=== PATIENT | female | born 1985 | race Caucasian/White ===

== ENCOUNTER 2020-06-04 12:09 | Outpatient (REF) | payer MEDICAID, SELFPAY | END 2020-06-04 12:10 | disposition home or self-care (01) | LOC: HO.LAB 12:09 | PROVIDERS: PCP Emergency Medicine; Visit Provider Internal Medicine | DX: Z20.828 Contact with and (suspected) exposure to other viral communicable diseases (principal) | CPT/HCPCS: C9803; U0003 ==

== ENCOUNTER 2020-07-21 12:36 | Outpatient (REF) | payer MEDICAID, SELFPAY | END 2020-07-21 12:37 | disposition home or self-care (01) | LOC: HO.LAB 12:36 | PROVIDERS: Visit Provider Internal Medicine | DX: Z20.828 Contact with and (suspected) exposure to other viral communicable diseases (principal) | CPT/HCPCS: C9803; U0003 ==

== ENCOUNTER 2020-10-16 13:17 | Emergency (ER) | payer MEDICAID, SELFPAY ==
[2020-10-16 14:07] VITALS: BP 142/82; PULSE 91; RESP 16; TEMP 37.2; BMI 33.4
--- NOTE | 2020-10-16 14:37 | ED.URI ---
HPI - URI/Sore Throat General Chief Complaint: General Medical Stated Complaint: covid symptoms Time Seen by Provider: 10/16/20 14:02 Source: patient Mode of arrival: ambulatory Limitations: no limitations History of Present Illness HPI Narrative: 35-year-old female with a past medical history of asthma and migraine headaches presenting to the ED with complaints of fevers, chills, body aches, nasal congestion, runny nose, dry cough with shortness of breath and chest tightness otherwise does not have any shortness of breath for check tightness only with the cough for the past 3 days worse today. Reports that she called her primary care provider and they prescribed her albuterol inhaler and neb solutions although no other prescriptions. Patient requesting COVID swab. Denies any other symptoms complaints or concerns at this time. MD elicited complaint: cough, rhinorrhea and nasal congestion Onset (ago): day(s) (Three days) Consistency: constant Severity: mild Description of mucous: watery and yellow Able to tolerate fluids by mouth: Yes Exacerbating factors: nothing Relieving factors: nothing Associated symptoms: fever, chills, myalgias, rhinorrhea, nasal congestion, cough and shortness of breath Treatments prior to arrival: none Related Data Previous Rx's Medication Instructions Recorded acetaminophen [Tylenol Extra 1,000 mg PO QID PRN #14 tab 10/16/20 Strength] azithromycin See Rx Instructions .ROUTE 10/16/20 .COMPLEX #6 tab cyclobenzaprine 10 mg PO Q8H #10 tab 10/16/20 ibuprofen 800 mg PO Q8H PRN #14 tab 10/16/20 prednisone 40 mg PO DAILY 5 Days #10 tab 10/16/20 Allergies Allergy/AdvReac Type Severity Reaction Status Date / Time SEASONAL ALLERGIES Allergy Mild HEADACHES Uncoded 04/17/20 15:42 cats Allergy Unknown Uncoded 02/07/20 00:00 seasonal Allergy Unknown Uncoded 02/07/20 00:00 some seafood Allergy Unknown Uncoded 02/07/20 00:00 Review of Systems Review of Systems: Constitutional : +Fever, +Chills, + fatigue, + Malaise ENT/Mouth : No sore throat, + runny nose/nasal congestion Eyes: No Discharge Cardiovascular : No Chest Pain, + SOB Respiratory : + Cough, No Sputum, + Wheezing, No Smoke Exposure, No Dyspnea Gastrointestinal : No Nausea, No Vomiting, No Diarrhea Genitourinary : No irregular bleeding, No Dysuria, No Urinary Frequency, No Hematuria, No Urinary Incontinence, No Urgency, No Flank Pain, Musculoskeletal : + Myalgia Skin : No rash Neuro : No Headache Yes all other systems are reviewed and are negative [facility] Past Medical History Attestation statement: The following information was validated with the patient. Medical History Asthma Hives Migraines Social History Social History Advance Directives: No Advance Directives Information Provided: No Physical Exam Vital Signs: Vital Signs: Last Vital Signs Temp 99.0 F 10/16/20 14:07 Pulse 91 10/16/20 14:07 Resp 16 10/16/20 14:07 BP 142/82 H 10/16/20 14:07 Body Mass Index 33.4 vital signs have been reviewed as normal and appeared to be correct. Blood pressure normal. Heart rate normal. Respiration rate normal. Temperature normal. Oxygen saturation normal. Appearance: Alert. Oriented X3. No acute distress. Head: Normal external exam. Normocephalic. Atraumatic. Eyes: PERRLA. EOMI. Conjunctiva and sclera normal. Eyelids normal. ENT: EAC normal. TM's Normal. Pharynx normal. Uvula midline. Moist mucous membranes. No trismus noted. No drooling noted. No muffled voice noted. Neck: Normal inspection. Neck supple. FROM. No adenopathy. Thyroid Normal. No meningeal signs. No neck mass noted. CVS: Normal heart rate and rhythm. Heart sound normal. No murmurs noted. Pulses normal throughout. Respiratory: No respiratory distress. Painless inspiration. Breath sounds normal. No wheezes/rales/rhonchi noted. Chest nontender. No accessory muscle usage noted or decreased air movement noted. Back: Full range of motion noted. Skin: Skin warm and dry. Normal skin color. Normal skin turgor. No rashes/lesions/lacerations noted. Extremities: No lower extremity edema. Extremities exhibit normal range of motion. Extremities nontender. Neuro: Oriented X 3. No motor deficit. No sensory deficit. Reflexes normal. Course Course Course Narrative: 35-year-old female presenting to the ED with URI symptoms for the past 3 days worse today. On exam patient is alert oriented x3. Not in any acute distress. Vital signs are stable within normal limits. Lungs clear to auscultation. CV RRR. Abdomen is soft and nontender. No lower extremity edema. We will obtain a COVID/RSV/flu swab and DC home with antibiotics and symptomatic treatment as patient declined further workup reported that she is only here for COVID swab and to self isolate and to return if any new or worsening symptoms to follow up with primary care provider. Patient understands agrees with this plan. MDM - URI/Sore Throat Differential Diagnosis Differential diagnosis: Likely upper respiratory infection, sinusitis, viral infection, bronchitis and influenza Medical Records Attestation: I reviewed the patient's medical records. Lab Data Attestation: I reviewed the patient's lab results. Discharge Plan Discharge Clinical Impression: Viral infection Patient Disposition: Home, Self-Care Instructions: Viral Syndrome (ED), COVID-19 (Coronavirus Disease 2019) (ED) Additional Instructions: Based on your symptoms and history we have sent a COVID-19. Although your RESULT IS PENDING at this time. RESULTS should return within 72 hours. At this time you will be contacted with either NEGATIVE OR POSITIVE results. -Please wait until we contact you for your results. At this time you will be okay for discharge. Please plan for self quarantine for up to 14 days. Do not expose yourself to others. You may not go to work. If testing does come back negative you may return to activities as long as you are no longer having any symptoms for at least 3 days. Please continue to follow cold instructions and wash your hands frequently. You may take Tylenol as directed on the bottle for pain or fever. Patient seen in the emergency department on 10/16/2020 and should be excused from work until negative test results AND until 72 hours without any symptoms AND at least 10 days have passed since symptoms first appeared or since last exposure to COVID-19 positive patient CDC Guidelines for home isolation: - Stay away from others - WEAR A MASK if you are sick AND STAY HOME - Cover your mouth and nose with a tissue when you cough or sneeze. Dispose of tissues in a lined trash can and wash your hands immediately with soap and water for at least 20 seconds. If soap and water are not available, clean hands with alcohol-based hand bread icer that contains at least 60% alcohol. - Clean your hands often with soap and water for at least 20 seconds - Avoid touching your eyes, nose and mouth with unwashed hands - Do not share dishes, drinking glasses, cups, eating utensils, towels, or bedding with other people in your home. After using these items, wash them thoroughly with soap and water or put in the injection moulding machine operator. - Clean high-touch surfaces in your isolation area ( sick room and bathroom) every day; let a caregiver clean and disinfect high-touch surfaces in other areas of the home. Clean the area or item with soap and water or another detergent if it is dirty. Then, use a household disinfectant. - Limit contact with pets and animals: If you must care for a pet, wash your hands before and after interacting with them). Prescriptions: New cyclobenzaprine 10 mg tablet 10 mg PO Q8H Qty: 10 RF: 0 azithromycin 250 mg tablet See Rx Instructions .ROUTE .COMPLEX Qty: 6 RF: 0 ibuprofen 800 mg tablet 800 mg PO Q8H PRN (Reason: pain) Qty: 14 RF: 0 prednisone 20 mg tablet 40 mg PO DAILY 5 Days Qty: 10 RF: 0 acetaminophen [Tylenol Extra Strength] 500 mg tablet 1,000 mg PO QID PRN (Reason: fever or pain) Qty: 14 RF: 0 Referrals: [facility] [Primary Care Provider] - 2 days Stand Alone Forms: Work/School Release Print Language: Uzbek
[2020-10-16 15:17] LABS: Influenza A PCR NEGATIVE (Negative); Influenza B PCR NEGATIVE (Negative); Resp Syncy Virus RNA Qual PCR NEGATIVE (Negative); SARS COV2 PCR INHOUSE POSITIVE (Negative)
== END 2020-10-16 15:13 | disposition home or self-care (01) ==
PROVIDERS: Physician Assistant Medical; Emergency Provider Emergency Medicine Emergency Medical Services
DX: U07.1 COVID-19 (principal); J45.909 Unspecified asthma, uncomplicated; F17.210 Nicotine dependence, cigarettes, uncomplicated
CPT/HCPCS: 0241U; 36415; 99283

== ENCOUNTER 2020-10-20 13:56 | Emergency (ER) | payer MEDICAID, SELFPAY ==
--- NOTE | ~2020-10-20 | XR_ITS ---
EXAMINATION: XR CHEST CLINICAL INFORMATION: Chest pain COMPARISON: Chest radiographs 07/24/2019, 09/23/2018 TECHNIQUE: Portable upright AP view of the chest was obtained. FINDINGS: The lungs are clear. There is no airspace consolidation, pleural reaction, pneumothorax, or pneumomediastinum. The costophrenic sulci are well-defined. There is no effusion. The heart is normal in size. The hilar and mediastinal contours and visualized bony structures are unremarkable. XR/XR chest 1V IMPRESSION: Normal study.
[2020-10-20 14:28] VITALS: BP 128/78; PULSE 105; RESP 20; TEMP 37.3; O2SAT 98; BMI 34.4
--- NOTE | 2020-10-20 14:31 | ECG_ITS ---
Test Reason : CHEST TIGHTNESS Blood Pressure : / mmHG Vent. Rate : 089 BPM Atrial Rate : 089 BPM P-R Int : 142 ms QRS Dur : 090 ms QT Int : 342 ms P-R-T Axes : 038 080 039 degrees QTc Int : 416 ms Normal sinus rhythm Normal ECG When compared with ECG of 21-JUN-2017 10:12, No significant change was found Referred By: Taco Fuentes Electronically Signed By:DARSHAN BELLO
--- NOTE | 2020-10-20 14:35 | ED_ITS ---
HPI - Chest Pain General Chief Complaint: Upper Respiratory Symptoms Stated Complaint: +covid,chest pain Time Seen by Provider: 10/20/20 14:30 Source: patient Mode of arrival: ambulatory Limitations: no limitations History of Present Illness HPI narrative: 35-year-old female recently diagnosed with COVID pneumonia, patient presented today with 3 days of chest pain, describes pain as dull aching pain to the whole entire front chest, patient thinks chest pain is because of productive cough of greenish sputum. Patient was seen in the emergency department 4 days ago and was sent home with this zithromax/prednisone. Related Data Previous Rx's Medication Instructions Recorded acetaminophen [Tylenol Extra 1,000 mg PO QID PRN #14 tab 10/16/20 Strength] azithromycin See Rx Instructions .ROUTE 10/16/20 .COMPLEX #6 tab cyclobenzaprine 10 mg PO Q8H #10 tab 10/16/20 ibuprofen 800 mg PO Q8H PRN #14 tab 10/16/20 prednisone 40 mg PO DAILY 5 Days #10 tab 10/16/20 Allergies Allergy/AdvReac Type Severity Reaction Status Date / Time SEASONAL ALLERGIES Allergy Mild HEADACHES Uncoded 04/17/20 15:42 cats Allergy Unknown Uncoded 02/07/20 00:00 seasonal Allergy Unknown Uncoded 02/07/20 00:00 some seafood Allergy Unknown Uncoded 02/07/20 00:00 Review of Systems Review of Systems: All other systems are reviewed and are negative Constitutional: Reports as per HPI and Reports no additional constitutional complaints Eyes: Reports as per HPI and Reports no additional eye complaints Reports system reviewed and no additional complaints, except as documented Cardiovascular: Reports as per HPI and Reports no additional cardiovascular complaints Respiratory: Reports as per HPI and Reports no additional respiratory complaints Gastrointestinal: Reports as per HPI and Reports no additional gastrointestinal complaints Genitourinary: Reports no additional female genitourinary complaints Musculoskeletal: Reports no additional musculoskeletal complaints Skin/Breast: Reports system reviewed and no additional complaints, except as docu Psychiatric: Reports no additional psychiatric complaints Endocrine: Reports no additional endocrine complaints Hematologic/Lymphatic: Reports no additional hematologic/lymphatic complaints Allergic/Immunologic: Reports no additional allergic/immunologic complaints Reports system reviewed and no additional complaints, except as documented and Reports Abnormal speech present [facility] Past Medical History Medical History Asthma EP (ectopic ) Hives Migraines Surgical History H/O tubal ligation Social History Social History Smoking Status: Light tobacco smoker Use of substances other than those prescribed or required for medical reasons: No Advance Directives: No Advance Directives Information Provided: Yes Physical Exam Vital Signs: Vital Signs: Last Vital Signs Temp 99.1 F 10/20/20 14:28 Pulse 105 H 10/20/20 14:28 Resp 20 10/20/20 14:28 BP 128/78 10/20/20 14:28 Pulse Ox 98 10/20/20 14:28 Body Mass Index 34.4 Vital signs have been reviewed as appeared to be correct. Blood pressure normal. Heart rate elevated. Respiration rate normal. Temperature normal. Oxygen saturation normal. Appearance: Alert. Oriented X3. No acute distress. Head: Normal external exam. Normocephalic. Atraumatic. No [place] signs noted. No raccoon eyes noted Eyes: PERRLA. EOMI. Conjunctiva and sclera normal. Eyelids normal. ENT: TM's Normal. Pharynx normal. Uvula midline. Moist mucous membranes. No trismus noted. No drooling noted. No muffled voice noted. Neck: Normal inspection. Neck supple. FROM. No adenopathy. Thyroid Normal. No meningeal signs. No neck mass noted. CVS: Normal heart rate and rhythm. Heart sound normal. No murmurs noted. Pulses normal throughout. Respiratory: No respiratory distress. Painless inspiration. Breath sounds normal. Diffuse expiratory wheezing bilaterally, no rhonchi noted. Chest nontender. No accessory muscle usage noted or decreased air movement noted. Abdomen: Soft and nontender. Bowel sounds normal in all 4 quadrants. No distention noted. No organomegaly noted. No visible injury noted. Back: No CVA tenderness. Full range of motion noted. Skin: Skin warm and dry. Normal skin color. Normal skin turgor. No rashes/lesions/lacerations noted. Extremities: No lower extremity edema. Extremities exhibit normal range of motion. Extremities nontender. Neuro: Oriented X 3. No motor deficit. No sensory deficit. Reflexes normal. Course Course Course Narrative: Assessment and plan. This is a 35-year-old female with COVID pneumonia and history of asthma, patient just finished course of prednisone will not repeat prednisone. Patient felt better after having continuous bronchodilator via neb still complaining of chest tightness, will discharged to use bronchodilator at home and use NSAIDs p.r.n. for discomfort or pain. MDM - Chest Pain Imaging Data Chest x-ray: Radiologist's impression: Normal study. ECG Data ECG #1: Interpretation: Normal sinus rhythm at 89 beats per minute, normal intervals, no ST-T changes. Discharge Plan Discharge Clinical Impression: Pneumonia due to COVID-19 virus Asthma Qualifiers: Asthma severity: moderate Asthma persistence: unspecified Asthma complication type: with acute exacerbation Qualified Code(s): J45.901 - Unspecified asthma with (acute) exacerbation Patient Disposition: Home, Self-Care Instructions: Asthma (ED) Prescriptions: No Action cyclobenzaprine 10 mg tablet 10 mg PO Q8H Qty: 10 RF: 0 azithromycin 250 mg tablet See Rx Instructions .ROUTE .COMPLEX Qty: 6 RF: 0 ibuprofen 800 mg tablet 800 mg PO Q8H PRN (Reason: pain) Qty: 14 RF: 0 prednisone 20 mg tablet 40 mg PO DAILY 5 Days Qty: 10 RF: 0 acetaminophen [Tylenol Extra Strength] 500 mg tablet 1,000 mg PO QID PRN (Reason: fever or pain) Qty: 14 RF: 0 Referrals: [facility] [Primary Care Provider] - 2 days
[2020-10-20] MEDS: Albuterol Sulfate (0.083%) 2.5 MG/3 ML VIAL.NEB 5 MG INHALE (15:47)
[2020-10-20] MEDS: Albuterol/Iprat 2.5/0.5MG 3 ML AMPUL.NEB INHALE (15:47)
== END 2020-10-20 16:31 | disposition home or self-care (01) ==
PROVIDERS: Emergency Provider Emergency Medicine
DX: U07.1 COVID-19 (principal); J12.82 Pneumonia due to coronavirus disease 2019; J45.901 Unspecified asthma with (acute) exacerbation; Z79.899 Other long term (current) drug therapy; F17.200 Nicotine dependence, unspecified, uncomplicated; Z71.6 Tobacco abuse counseling
CPT/HCPCS: 71045; 93005; 99284

== ENCOUNTER 2020-10-29 10:45 | Outpatient (REF) | payer MEDICAID, SELFPAY ==
[2020-10-29 13:17] LABS: SARS COV2 PCR INHOUSE POSITIVE (Negative)
== END 2020-10-29 10:46 | disposition home or self-care (01) ==
LOC: HO.LAB 10:45
PROVIDERS: Visit Provider Internal Medicine
DX: Z20.822 Contact with and (suspected) exposure to COVID-19 (principal)
CPT/HCPCS: C9803; U0003

== ENCOUNTER 2021-08-07 09:46 | Outpatient (REF) | payer MEDICAID, SELFPAY ==
--- NOTE | ~2021-08-07 | MM_ITS ---
EXAMINATION: MM DIAGNOSTIC DIGITAL BREAST TOMOSYNTHESIS, BILATERAL US BREAST TARGETED, LEFT CLINICAL INFORMATION: Left breast lump lower outer quadrant. The lifetime risk of breast cancer based on the Tyrer-Cuzick Model is 9.7%. COMPARISON: Mammography: 01/03/2019 and studies dating back to 12/28/2018 TECHNIQUE: Digital breast tomosynthesis is performed in both the craniocaudal and mediolateral oblique views along with computer-aided detection (CAD). Synthesized 2-D images are generated from the tomosynthesis. Targeted left breast ultrasound. FINDINGS: The breasts are heterogeneously dense, which may obscure small masses (ACR BI-RADS breast composition Category c). There are no significant masses, abnormal calcifications, or other abnormalities. Targeted ultrasound evaluation of the left breast did not demonstrate any abnormal cystic or solid mass. No edematous change within the tissue is seen. No region of abnormal distal sound shadowing seen. Results are discussed with the patient at time of visit. MM/MM tomosynthesis diagnostic BI IMPRESSION: No specific mammographic or ultrasound findings to suggest malignancy. ASSESSMENT: BI-RADS 1: Negative. RECOMMENDATION: Screening mammography by age 40. Clinical followup for palpable abnormality. This patient's information was entered into a reminder system with a target due date for their next mammogram.
--- NOTE | ~2021-08-07 | US_ITS ---
EXAMINATION: US DIAGNOSTIC ULTRASOUND BREAST, LEFT CLINICAL INFORMATION: Left breast lump. COMPARISON: Mammography of same day and ultrasound of December 28, 2018. TECHNIQUE: Ultrasound of the breast is performed with real-time burleson scale imaging and color Doppler. FINDINGS: There is no focal suspicious finding. There is no solid mass, architectural abnormality, duct ectasia, or edema in the soft tissue planes. Results are discussed with the patient at time of visit. US/US breast LT limited IMPRESSION: No specific suspicious left breast ultrasound findings in region of palpable abnormality. ASSESSMENT: BI-RADS 1: Negative RECOMMENDATION: Clinical follow-up for palpable abnormality. This patient's information was entered into a reminder system with a target due date for their next mammogram.
== END 2021-08-07 09:47 | disposition home or self-care (01) ==
LOC: HO.MAMMO 09:46
PROVIDERS: PCP Nurse Practitioner; Visit Provider Nurse Practitioner
DX: N63.24 Unspecified lump in the left breast, lower inner quadrant (principal)
CPT/HCPCS: 76642; 77062; 77066

== ENCOUNTER 2021-10-25 17:57 | Emergency (ER) | payer MEDICAID, SELFPAY ==
--- NOTE | ~2021-10-25 | XR_ITS ---
EXAMINATION: XR CHEST CLINICAL INFORMATION: Cough. COMPARISON: Chest done on 10/20/2020. TECHNIQUE: Frontal view of the chest was obtained. FINDINGS: No significant abnormality is noted involving the heart, lungs, mediastinum, bony thorax or soft tissues. XR/XR chest 1V IMPRESSION: Unremarkable examination.
[2021-10-25 18:01] VITALS: BP 100/73; PULSE 82; RESP 17; TEMP 36.5; O2SAT 100; BMI 35.0
--- NOTE | 2021-10-25 19:59 | ED.ASTHMA ---
HPI - Asthma General Chief Complaint: Asthma Stated Complaint: congested/cheat tightness Time Seen by Provider: 10/25/21 19:59 Source: patient Mode of arrival: ambulatory Limitations: no limitations History of Present Illness HPI Narrative: Patient history of asthma vaccinated against COVID has noticed the booster dose had COVID 2 times last was in 07/21 comes here for cold symptoms for last 3 days with increased shortness of breath and cough with mucopurulent phlegm with chest tightness low-grade fever no chest pain Related Data Previous Rx's Medication Instructions Recorded acetaminophen 500 mg tablet 1,000 mg PO QID PRN #14 tab 10/16/20 (Tylenol Extra Strength) azithromycin 250 mg tablet See Rx Instructions .ROUTE 10/16/20 .COMPLEX #6 tab cyclobenzaprine 10 mg tablet 10 mg PO Q8H #10 tab 10/16/20 ibuprofen 800 mg tablet 800 mg PO Q8H PRN #14 tab 10/16/20 prednisone 20 mg tablet 40 mg PO DAILY 5 Days #10 tab 10/16/20 albuterol sulfate 2.5 mg (3 mL) INHALATION Q4-6H PRN 10/25/21 #90 ml azithromycin 250 mg tablet 250 mg PO DAILY 4 Days #4 tab 10/25/21 (Zithromax) prednisone 20 mg tablet 40 mg PO DAILY #10 tab 10/25/21 Allergies Allergy/AdvReac Type Severity Reaction Status Date / Time SEASONAL ALLERGIES Allergy Mild HEADACHES Uncoded 04/17/20 15:42 cats Allergy Unknown Uncoded 02/07/20 00:00 seasonal Allergy Unknown Uncoded 02/07/20 00:00 some seafood Allergy Unknown Uncoded 02/07/20 00:00 Review of Systems Review of Systems: Yes all other systems are reviewed and are negative PMFSH Past Medical History Medical History Asthma EP (ectopic ) Hives Migraines Surgical History H/O tubal ligation Social History Social History Alcohol intake: current Alcohol intake frequency: a few times a month Alcohol type: hard liquor Patient Tobacco Use Status: Current everyday Tobacco user Smoked in Last 30 Days: No Use of substances other than those prescribed or required for medical reasons: No Advance Directives: No Advance Directives Information Provided: Yes Physical Exam Vital Signs: Vital Signs: Last Vital Signs Temp 97.8 F 10/25/21 21:48 Pulse 87 10/25/21 21:48 Resp 18 10/25/21 21:48 BP 136/79 10/25/21 21:48 Pulse Ox 99 10/25/21 21:48 BMI result Body Mass Index 35.0 Appearance: Alert. Oriented X3. Mild respiratory distress ENT: Pharynx normal. Oral Mucosa moist no exudate tonsils normal Neck: Normal inspection. Neck supple. CVS: Normal heart rate and rhythm. Pulses normal. Respiratory: Mild distress Equal air entry bilateral, bilateral wheezing Abdomen: Soft and nontender. Bowel sounds are present, no mass palpable, no CVA tenderness Skin: Skin warm and dry. Normal skin color. Normal skin turgor. Extremities: No lower extremity edema. No calf tenderness Neuro: Oriented X 3. MDM - Asthma Lab Data Result diagrams: 10/25/21 20:37 10/25/21 20:58 Labs: Lab Results 10/25/21 10/25/21 10/25/21 Range/Units 20:37 20:37 20:58 WBC 8.9 (4.8-10.8) X10*3/uL RBC 5.04 (4.20-5.50) X10*6/uL Hgb 12.2 (12.0-16.0) g/dl Hct 38.4 (37.0-47.0) % MCV 76.2 L (80.0-98.0) fL MCH 24.2 L (27.0-33.0) pg MCHC 31.8 (31.0-35.0) g/dl RDW 15.6 (11.0-16.0) % Plt Count 248 (160-400) X10*3/uL MPV 10.6 (9.4-12.3) fL Immature Gran % (Auto) 0.2 (0.0-0.4) % Neut % (Auto) 45.3 (45-73) % Lymph % (Auto) 38.7 (20-40) % [place] % (Auto) 7.8 (2-11) % Eos % (Auto) 7.4 H (0-4) % Baso % (Auto) 0.6 (0-2) % Lymph # (Auto) 3.4 (1.2-4.9) X10*3/uL [place] # (Auto) 0.7 (0.1-1.2) X10*3/uL Eos # (Auto) 0.7 H (0.0-0.4) X10*3/uL Baso # (Auto) 0.1 (0.0-0.2) X10*3/uL Abs Immat Gran (auto) 0.02 (0.00-0.03) X10*3/uL Absolute Neuts (auto) 4.0 (2.0-8.3) x10*3/uL Absolute Nucleated RBC 0.000 (0.0-0.012) X10*3/uL Nucleated RBC % (auto) 0.0 (0.0-0.2) /100WBC Sodium 139 (135-145) mmol/L Potassium 3.1 L (3.3-5.1) mmol/L Chloride 104 (96-108) mmol/L Carbon Dioxide 24 (22-29) mmol/L Anion Gap 14 (12-20) BUN 13 (9-16) mg/dL Creatinine 0.78 (0.5-1.4) mg/dL Estim Creat Clear Calc 124.4 Estimated GFR > 60 Random Glucose 117 H (60-115) mg/dL Calcium 8.9 (8.4-10.2) mg/dL COVID-19 (FRITZ) Negative (Negative) COVID-19 Clin Com See Note Discharge Plan Discharge Clinical Impression: Asthma with acute exacerbation Patient Disposition: Home, Self-Care Instructions: Asthma (ED) Additional Instructions: Continue to use inhaler and nebulizing treatment every 4-6 hours as needed Prednisone as prescribed Antibiotic as prescribed Follow with PCP Prescriptions: New prednisone 20 mg tablet 40 mg PO DAILY Qty: 10 0RF azithromycin [Zithromax] 250 mg tablet 250 mg PO DAILY 4 Days Qty: 4 0RF Rx Instructions: start on day 2 of therapy albuterol sulfate 2.5 mg /3 mL (0.083 %) solution for nebulization 2.5 mg inhalation Q4-6H PRN (Reason: shortness of breath or wheezing) Qty: 90 0RF No Action cyclobenzaprine 10 mg tablet 10 mg PO Q8H Qty: 10 0RF azithromycin 250 mg tablet See Rx Instructions .ROUTE .COMPLEX Qty: 6 0RF Rx Instructions: take 500 mg today (day 1), then 250 mg for 4 days (days 2-5) ibuprofen 800 mg tablet 800 mg PO Q8H PRN (Reason: pain) Qty: 14 0RF prednisone 20 mg tablet 40 mg PO DAILY 5 Days Qty: 10 0RF acetaminophen [Tylenol Extra Strength] 500 mg tablet 1,000 mg PO QID PRN (Reason: fever or pain) Qty: 14 0RF Interventions: ED Discharge Assessment Last Done: 10/25/21 21:59 Discharge Date/Time: 10/25/21 22:00
[2021-10-25 20:00] VITALS: BP 125/81; PULSE 77; RESP 18; TEMP 36.6; O2SAT 99
--- NOTE | 2021-10-25 20:14 | PC.NURSE ---
pt a&ox3, vss, pt reports cold and now an exacerbation of her asthma. hx of similar episodes w URIs/seasonal changes. pt c/o chest tightness/sharp pain. pt speaking in full sentances, norm resp effort, some wheezing when talking. respiratory in room for breathing treatments, unable to draw labs/place IV at this time.
[2021-10-25] MEDS: Albuterol/Iprat 2.5/0.5MG 3 ML AMPUL.NEB INHALE (20:15)
[2021-10-25] MEDS: Albuterol Sulfate (0.083%) 2.5 MG/3 ML VIAL.NEB 5 MG INHALE (20:15)
[2021-10-25 20:26] VITALS: PULSE 71; RESP 14; O2SAT 97
[2021-10-25] MEDS: Magnesium Sulfate/H2O 2 GM/50 ML PIGGYBACK IV (20:45)
[2021-10-25 20:49] LABS: MANUAL DIFF FLAG NO
--- NOTE | 2021-10-25 20:50 | PC.NURSE ---
pt medicated per order, pt a&ox3, speaking in full sentences, family at bedside.
[2021-10-25 20:53] LABS: Basophils Absolute Auto 0.1 X10*3/uL (0.0-0.2); Basophils Percent Auto 0.6 % (0-2); Eosinophils Absolute Auto 0.7 X10*3/uL (0.0-0.4); Eosinophils Percent Auto 7.4 % (0-4); Hematocrit 38.4 % (37.0-47.0); Hemoglobin 12.2 g/dl (12.0-16.0); Imm Gran Abs Auto 0.02 X10*3/uL (0.00-0.03); Imm Gran Pct Auto 0.2 % (0.0-0.4); Lymphocytes Absolute Auto 3.4 X10*3/uL (1.2-4.9); Lymphocytes Percent Auto 38.7 % (20-40); Mean Corpuscular HGB Conc 31.8 g/dl (31.0-35.0); Mean Corpuscular Hemoglobin 24.2 pg (27.0-33.0); Mean Corpuscular Volume 76.2 fL (80.0-98.0); Mean Platelet Volume 10.6 fL (9.4-12.3); Monocytes Absolute Auto 0.7 X10*3/uL (0.1-1.2); Monocytes Percent Auto 7.8 % (2-11); Neutrophils Percent Auto 45.3 % (45-73); Platelet Count 248 X10*3/uL (160-400); Red Blood Count 5.04 X10*6/uL (4.20-5.50); Red Cell Distribution Width 15.6 % (11.0-16.0); White Blood Count 8.9 X10*3/uL (4.8-10.8)
[2021-10-25 21:07] LABS: COVID-19 Test Negative (Negative); IDNOW Serial# 16C4AD1C
[2021-10-25 21:20] LABS: Anion Gap 14 (12-20); Blood Urea Nitrogen 13 mg/dL (9-16); Calcium 8.9 mg/dL (8.4-10.2); Carbon Dioxide 24 mmol/L (22-29); Chloride 104 mmol/L (96-108); Creatinine Clr Calc Pharmacy 124.4; Estimated Glomerular Filt Rate > 60; Glucose Random 117 mg/dL (60-115); Potassium 3.1 mmol/L (3.3-5.1); Sodium 139 mmol/L (135-145)
[2021-10-25] MEDS: dexAMETHasone sod phosphate 10 MG/ML VIAL IVPUSH (21:44)
[2021-10-25] MEDS: Azithromycin 500 MG TABLET PO (21:44)
[2021-10-25 21:48] VITALS: BP 136/79; PULSE 87; RESP 18; TEMP 36.6; O2SAT 99
--- NOTE | 2021-10-25 21:59 | PC.NURSE ---
pt medicated per order
== END 2021-10-25 22:00 | disposition home or self-care (01) ==
PROVIDERS: Emergency Provider Internal Medicine
DX: J45.901 Unspecified asthma with (acute) exacerbation (principal); R06.02 Shortness of breath; R05.9 Cough, unspecified; F17.200 Nicotine dependence, unspecified, uncomplicated; Z20.822 Contact with and (suspected) exposure to COVID-19; Z71.6 Tobacco abuse counseling
CPT/HCPCS: 71045; 80048; 85025; 87635; 94640; 94644; 96365; 96366; 99284; J1100; J3475

== ENCOUNTER 2023-06-30 13:28 | Outpatient (REF) | payer MEDICAID, SELFPAY | END 2023-06-30 13:29 | disposition home or self-care (01) | LOC: HO.HHCLNP 13:28 | PROVIDERS: Visit Provider Family Medicine | DX: J06.9 Acute upper respiratory infection, unspecified (principal) | CPT/HCPCS: 87070 ==

== ENCOUNTER 2023-07-20 09:43 | Emergency (ER) | payer MEDICAID, SELFPAY ==
--- NOTE | ~2023-07-20 | XR_ITS ---
EXAMINATION: XR CHEST CLINICAL INFORMATION: Shortness of breath COMPARISON: 12/25/2021 TECHNIQUE: 2 views of the chest were obtained. FINDINGS: No significant abnormality is noted involving the heart, lungs, mediastinum, bony thorax or soft tissues. XR/XR chest 2V IMPRESSION: Unremarkable examination.
[2023-07-20 09:57] VITALS: BP 125/89; PULSE 95; RESP 22; TEMP 36.6; O2SAT 95; BMI 33.9
--- NOTE | 2023-07-20 12:51 | ED.GENADULT ---
HPI - General Adult General Chief complaint: Upper Respiratory Symptoms Stated complaint: Asthma Diff Breathing Time Seen by Provider: 07/20/23 12:46 Source: patient Mode of arrival: ambulatory Limitations: no limitations History of Present Illness HPI narrative: Patient is a 38 year old assigned female at with a history of asthma presenting to the emergency department today with a cough and congestion. Patient states that over the last month she has had a cough and congestion. Patient denies any dizziness, lightheadedness, abdominal pain, nausea, vomiting, fever, chills, blurry vision, double vision, loss of vision, chest pain, difficulty breathing, shortness of breath, back pain, night sweats, pain with urination, increased urinary frequency, increased urinary urgency, blood in her urine or stool, syncope or a near syncopal episode, recent trauma or falls, bowel incontinence, bladder incontinence, bowel retention, bladder retention, or any other complaints at this time. Onset (ago): month(s) (1) Severity: mild Relieving factors: none Exacerbating factors: none Associated symptoms: cough Treatments prior to arrival: none Related Data Previous Rx's Medication Instructions Recorded acetaminophen 500 mg tablet 1,000 mg (2 x 500 mg) PO QID PRN 10/16/20 (Tylenol Extra Strength) fever or pain #14 tabs azithromycin 250 mg tablet See Rx Instructions PO .COMPLEX #6 10/16/20 tabs cyclobenzaprine 10 mg tablet 10 mg PO Q8H Muscle spasm #10 tabs 10/16/20 ibuprofen 800 mg tablet 800 mg PO Q8H PRN pain #14 tabs 10/16/20 prednisone 20 mg tablet 40 mg (2 x 20 mg) PO DAILY rash 5 10/16/20 days #10 tabs albuterol sulfate 2.5 mg/3 mL 2.5 mg (3 mL) inhalation Q4-6H PRN 10/25/21 (0.083 %) solution for nebulization shortness of breath or wheezing #90 mL azithromycin 250 mg tablet 250 mg PO DAILY 4 days #4 tabs 10/25/21 (Zithromax) prednisone 20 mg tablet 40 mg (2 x 20 mg) PO DAILY #10 tabs 10/25/21 albuterol sulfate 1.25 mg/3 mL 1.25 mg (3 mL) inhalation QID #90 07/20/23 solution for nebulization mL prednisone 20 mg tablet 20 mg PO DAILY 7 days #7 tabs 07/20/23 Allergies Allergy/AdvReac Type Severity Reaction Status Date / Time SEASONAL ALLERGIES Allergy Mild HEADACHES Uncoded 07/20/23 09:56 cats Allergy Unknown Anaphylaxis Uncoded 07/20/23 09:56 seasonal Allergy Unknown Hives Uncoded 07/20/23 09:56 some seafood Allergy Unknown Anaphylaxis Uncoded 07/20/23 09:56 Review of Systems Constitutional: Constitutional: Reports no additional constitutional complaints, Denies chills, Denies fever(s) and Denies night sweats Eyes: Eyes: Reports no additional eye complaints, Denies blurry vision, Denies change in vision, Denies diplopia, Denies eye discharge, Denies loss of vision and Denies eye pain ENT: Denies dizziness and Reports nasal congestion Cardiovascular: Cardiovascular: Reports no additional cardiovascular complaints, Denies chest pain, Denies lightheadedness, Denies Loss of Consciousness and Denies dyspnea Respiratory: Respiratory: Reports no additional respiratory complaints, Reports cough and Denies dyspnea Gastrointestinal: Gastrointestinal: Reports no additional gastrointestinal complaints, Denies abdominal pain, Denies melena, Denies hematochezia, Denies change in bowel habits and Denies change in stool character Genitourinary: Genitourinary: Denies hematuria, Denies urinary frequency, Denies dysuria, Denies urinary incontinence, Denies urinary hesitancy and Denies urinary urgency Musculoskeletal: Musculoskeletal: Reports no additional musculoskeletal complaints, Denies numbness and Denies tingling Neurologic: Denies dizziness, Denies loss of vision, Denies numbness and Denies tingling Psychiatric: Psychiatric: Reports no additional psychiatric complaints Endocrine: Endocrine: Reports no additional endocrine complaints Hematologic/Lymphatic: Hematologic/Lymphatic: Reports no additional hematologic/lymphatic complaints Allergic/Immunologic: Allergic/Immunologic: Reports no additional allergic/immunologic complaints PMFSH Past Medical History Attestation statement: The following information was validated with the patient. Source: old records reviewed and nursing notes reviewed Medical History EP (ectopic ) Hives Migraines Asthma Surgical History H/O tubal ligation Social History Social History Alcohol intake: current Alcohol intake frequency: a few times a month Alcohol type: hard liquor Patient Tobacco Use Status: Current everyday Tobacco user Advance Directives: No Physical Exam ED Vital Signs: Vital Signs - 24 hr 07/20/23 09:57 07/20/23 13:15 Temperature 98 F Pulse Rate 95 72 Respiratory Rate 22 H 18 Blood Pressure 125/89 Pulse Oximetry 95 Oxygen Delivery Method Room Air BMI result Body Mass Index 33.9 Const General: cooperative, no acute distress, alert and awake Nutritional Appearance: well nourished Orientation/consciousness: patient oriented x3 Limitations: no limitations HENMT Head: Yes normal to inspection and Yes atraumatic Ears: hearing grossly normal bilaterally and external ears normal General nose exam: Normal external nose present, no nasal discharge noted and no epistaxis Face and sinus: Yes normal facial exam, No abrasion and No laceration Mouth: Normal oral and palatal mucosa present, no drooling and no muffled voice Eyes General: appearance normal, both eyes and all related structures Periorbital: periorbital findings normal Eyelids: Yes eyelids normal Conjunctivae: conjunctivae normal Pupils: Equal, round and reactive pupils present EOM: EOMs intact bilaterally Neck Neck: Yes normal visual inspection, Yes full ROM and Yes no lymphadenopathy Chest Chest palpation & inspection: normal inspection of the chest Resp Effort & Inspection: normal respiratory effort and able to speak in complete sentences Auscultation: wheezes scattered wheezes GI Inspection: Yes normal to inspection Neuro General: patient oriented x3 and moves all extremities Cranial nerves: Yes Equal, round and reactive pupils present Cognition (Neuro): normal cognition Motor exam (neuro): 5/5 motor strength present throughout Sensory Exam: Normal double simultaneous stimulation for sensation Coordination: [id number] test normal Extrem General: Yes normal to inspection, Yes full ROM and Yes capillary refill normal Psych Appearance: grossly normal Mental Status: mental status grossly normal Affect: normal affect Attitude: cooperative Thought process: Normal thought process present Thought content: Normal thought content present Insight: Good insight present (Psych) Medications Administered Discontinued Medications Generic Name Dose Route Start Last Admin Trade Name Freq PRN Reason Stop Dose Admin Albuterol Sulfate 2.5 mg/ 0 mg 07/20/23 13:11 07/20/23 13:13 Albuterol/Ipratropium 3 ml INHALE 07/20/23 13:12 1 dose ONCE ONE Administration Methylprednisolone Sodium Succinate 60 mg 07/20/23 12:51 07/20/23 13:05 Methylprednisolone Sod Succ 125 Mg/2 Ml Vial IM 07/20/23 12:52 60 mg ONCE ONE Administration Medical Decision Making Medical Decision Making [facility] Narrative: Patient is a 38 year old assigned female at with a history of asthma presenting to the emergency department today with cough and congestion. Patient's physical exam showed scattered wheezes but was otherwise unremarkable. Patient's chest x-ray showed no acute process. Patient's RSV and influenza tests were negative. Patient's COVID-19 was positive. I explained my physical exam findings as well as all test results to the patient. I answered all questions asked by the patient. Patient received a breathing treatment which she stated helped her symptoms significantly. I stressed the importance of the patient taking her medication as prescribed. I stressed the importance of the patient following up with her primary care provider. I stressed the importance of the patient returning to the emergency department immediately if her symptoms were to worsen or if she were to develop any dizziness, shortness of breath, difficulty breathing, chest pain, blurry vision, loss of vision, nausea, vomiting, abdominal pain, fever, chills, back pain, or any other complaints. Patient verbalized agreement and understanding with this treatment plan and discharge. Differential Diagnosis Differential Diagnoses: The differential diagnosis associated with the presentation includes COVID-19 Influenza RSV Pneumonia Asthma exacerbation Admission/Observation Consideration of admission/observation: Escalation of care including admission/observation considered Patient would have been admitted to the hospital had her work up had any findings where hospital admission was appropriate and her clinical presentation warranted hospital admission. Lab Data [facility] Lab Attestation statement: I reviewed the patient's lab results. My interpretation of these results are in the [facility] Rationale portion of this note. Labs: Lab Results 07/20/23 Range/Units 12:12 Influenza Type A (PCR) NEGATIVE (Negative) Influenza Type B (PCR) NEGATIVE (Negative) RSV RNA Qual (PCR) NEGATIVE (Negative) SARS-CoV-2 RNA (RT-PCR) POSITIVE A (Negative) Independent Interpretation I performed an independent interpretation of an: Plain X-Ray Interpretation: My interpretation is in agreement with the radiologist's impression of this imaging study. EXAMINATION: XR CHEST CLINICAL INFORMATION: Shortness of breath COMPARISON: 12/25/2021 TECHNIQUE: 2 views of the chest were obtained. FINDINGS: No significant abnormality is noted involving the heart, lungs, mediastinum, bony thorax or soft tissues. XR/XR chest 2V IMPRESSION: Unremarkable examination. Dictated By: Dawood Guy MD Signed By: Electronically signed by Dawood Guy MD 07/20/23 9833 Radiology Impression Discussion of test interpretation with radiology: I have reviewed the radiologist's reading. Discharge Plan Discharge Clinical Impression: COVID-19, Asthma Patient Disposition: Home, Self-Care Instructions: Asthma (DC), COVID-19 (Coronavirus Disease 2019) (ED) Additional Instructions: Follow up with your primary care provider. Return to the emergency department immediately if your symptoms worsen or if you develop any dizziness, shortness of breath, difficulty breathing, chest pain, blurry vision, loss of vision, nausea, vomiting, abdominal pain, fever, chills, back pain, or any other complaints. Prescriptions: New prednisone 20 mg tablet 20 mg PO DAILY 7 Days Qty: 7 0RF albuterol sulfate 1.25 mg/3 mL solution for nebulization 1.25 mg inhalation QID Qty: 90 0RF No Action cyclobenzaprine 10 mg tablet 10 mg PO Q8H Qty: 10 0RF azithromycin 250 mg tablet See Rx Instructions .ROUTE .COMPLEX Qty: 6 0RF Rx Instructions: take 500 mg today (day 1), then 250 mg for 4 days (days 2-5) ibuprofen 800 mg tablet 800 mg PO Q8H PRN (Reason: pain) Qty: 14 0RF prednisone 20 mg tablet 40 mg PO DAILY 5 Days Qty: 10 0RF acetaminophen [Tylenol Extra Strength] 500 mg tablet 1,000 mg PO QID PRN (Reason: fever or pain) Qty: 14 0RF prednisone 20 mg tablet 40 mg PO DAILY Qty: 10 0RF azithromycin [Zithromax] 250 mg tablet 250 mg PO DAILY 4 Days Qty: 4 0RF Rx Instructions: start on day 2 of therapy albuterol sulfate 2.5 mg /3 mL (0.083 %) solution for nebulization 2.5 mg inhalation Q4-6H PRN (Reason: shortness of breath or wheezing) Qty: 90 0RF Referrals: [place] [Primary Care Provider] - Stand Alone Forms: Work/School Release Interventions: ED Discharge Assessment Last Done: 07/20/23 13:36 Discharge Date/Time: 07/20/23 14:55 Print Language: Faroese
[2023-07-20 12:56] LABS: Influenza A PCR NEGATIVE (Negative); Influenza B PCR NEGATIVE (Negative); Resp Syncy Virus RNA Qual PCR NEGATIVE (Negative); SARS COV2 PCR INHOUSE POSITIVE (Negative)
[2023-07-20] MEDS: methylPREDNISolone Sod Succ 125 MG/2 ML VIAL 60 MG IM (13:05)
[2023-07-20] MEDS: Albuterol Sulfate 2.5 MG, Albuterol/Iprat 2.5/0.5MG 3 ML 3 ML INHALE (13:13)
[2023-07-20 13:15] VITALS: PULSE 72; RESP 18; O2SAT 96
== END 2023-07-20 14:55 | disposition home or self-care (01) ==
PROVIDERS: Emergency Provider Emergency Medicine Emergency Medical Services
DX: U07.1 COVID-19 (principal); R06.02 Shortness of breath; R05.9 Cough, unspecified
CPT/HCPCS: 0241U; 71046; 94640; 96372; 99283; 99284; J2930

== ENCOUNTER 2024-01-11 15:48 | Outpatient (REF) | payer MEDICAID, SELFPAY ==
--- NOTE | ~2024-01-11 | XR_ITS ---
EXAMINATION: XR CERVICAL SPINE CLINICAL INFORMATION: Chronic neck pain and point tenderness over cervical spine. Patient states pain over a month, denies any accident or injury. COMPARISON: None available. TECHNIQUE: 6 views of the cervical spine. FINDINGS: Mild spondylosis in the lower cervical spine. Slight reversal of the normal cervical lordosis. Cervical disc space heights are preserved. Bilateral neural foramina are grossly patent. XR/XR cervical spine 5V IMPRESSION: Mild spondylosis in the lower cervical spine.
== END 2024-01-11 15:49 | disposition home or self-care (01) ==
LOC: HO.HHCL 15:48
PROVIDERS: Visit Provider Registered Nurse
DX: Z13.89 Encounter for screening for other disorder (principal)
CPT/HCPCS: 72050

== ENCOUNTER 2024-01-13 11:58 | Outpatient (REF) | payer MEDICAID, SELFPAY ==
[2024-01-13 13:16] LABS: MANUAL DIFF FLAG NO
[2024-01-13 13:46] LABS: Basophils Percent Auto 0.8 % (0-2); Eosinophils Absolute Auto 0.4 X10*3/uL (0.0-0.4); Eosinophils Percent Auto 6.8 % (0-4); Hematocrit 40.4 % (37.0-47.0); Hemoglobin 12.8 g/dl (12.0-16.0); Imm Gran Abs Auto 0.02 X10*3/uL (0.00-0.03); Imm Gran Pct Auto 0.4 % (0.0-0.4); Lymphocytes Absolute Auto 1.6 X10*3/uL (1.2-4.9); Lymphocytes Percent Auto 30.7 % (20-40); Mean Corpuscular HGB Conc 31.7 g/dl (31.0-35.0); Mean Corpuscular Hemoglobin 24.5 pg (27.0-33.0); Mean Corpuscular Volume 77.4 fL (80.0-98.0); Mean Platelet Volume 11.2 fL (9.4-12.3); Monocytes Absolute Auto 0.3 X10*3/uL (0.1-1.2); Monocytes Percent Auto 5.6 % (2-11); Neutrophils Percent Auto 55.7 % (45-73); Platelet Count 248 X10*3/uL (160-400); Red Blood Count 5.22 X10*6/uL (4.20-5.50); Red Cell Distribution Width 15.9 % (11.0-16.0); White Blood Count 5.3 X10*3/uL (4.8-10.8)
[2024-01-13 14:42] LABS: Alanine Aminotransferase 11 U/L (0-31); Albumin Level 3.8 g/dL (3.5-5.0); Alkaline Phosphatase 90 U/L (39-117); Anion Gap 13 (12-20); Aspartate Amino Transferase 14 U/L (5-31); Bilirubin Total 1.1 mg/dL (0.0-1.0); Blood Urea Nitrogen 10 mg/dL (9-16); Calcium 8.9 mg/dL (8.4-10.2); Carbon Dioxide 21 mmol/L (22-29); Chloride 108 mmol/L (96-108); Cholesterol 140 mg/dL (<200); Estimated Glomerular Filt Rate > 60; Ferritin 9 ng/mL (10-122); Free T4 (Free Thyroxine) 0.72 ng/dL (0.71-1.85); Glucose Fasting 99 mg/dL (60-99); HDL Cholesterol 61 mg/dL (>40); LDL Cholesterol Calculated 58 mg/dL (<100); Potassium 3.6 mmol/L (3.3-5.1); Sodium 138 mmol/L (135-145); Thyroid Stimulating Hormone 1.94 uIU/mL (0.32-4.0); Total Protein 6.9 g/dL (6.5-8.0); Triglycerides 107 mg/dL (<150)
[2024-01-16 03:24] LABS: Syphilis Screen Nonreactive (Nonreactive)
[2024-01-16 03:50] LABS: HBc Num1 0.09 S/CO (0.00-0.79); HBsAGNum1 0.23 S/CO (0.00-0.99); HIV AB/AG Nonreactive (Nonreactive); HIV Num 1 0.07 S/CO (0.00-0.99); Hepatitis A Antibody IgM 0.14 Index (0-0.79); Hepatitis B Core Antibody Nonreactive (Nonreactive); Hepatitis B Surface Antigen Negative (Negative); ~HepC Num1 0.08 S/CO (0.00-0.79); ~Hepatitis A Antibody IgM Nonreactive (Nonreactive); ~Hepatitis B Surface Antibody REACTIVE (Nonreactive); ~Hepatitis C Antibody Nonreactive (Nonreactive)
== END 2024-01-13 11:59 | disposition home or self-care (01) ==
LOC: HO.HHCL 11:58
PROVIDERS: Visit Provider Registered Nurse
DX: Z00.00 Encounter for general adult medical examination without abnormal findings (principal); Z11.4 Encounter for screening for human immunodeficiency virus [HIV]; N93.9 Abnormal uterine and vaginal bleeding, unspecified; E66.09 Other obesity due to excess calories; Z68.34 Body mass index [BMI] 34.0-34.9, adult
CPT/HCPCS: 36415; 80053; 80061; 82728; 84439; 84443; 85025; 86704; 86706; 86709; 86780; 86803; 87340; 87389

== ENCOUNTER 2024-06-18 16:12 | Outpatient (REF) | payer MEDICAID, SELFPAY ==
[2024-06-19 10:12] LABS: HPV 16,18/45 See PAP report
[2024-06-20 19:19] LABS: C. trachomatis RNA TMA NOT DETECTED (NOT DETECTED); N. gonorrhoeae RNA TMA NOT DETECTED (NOT DETECTED); Trichomonas (NAAT) NOT DETECTED (NOT DETECTED)
== END 2024-06-18 16:13 | disposition home or self-care (01) ==
LOC: HO.LNP 16:12
PROVIDERS: Visit Provider Registered Nurse
DX: Z12.4 Encounter for screening for malignant neoplasm of cervix (principal)
CPT/HCPCS: 87491; 87591; 87624; 87661; 88175

== ENCOUNTER 2024-11-02 12:41 | Outpatient (REF) | payer MEDICAID, SELFPAY ==
--- NOTE | ~2024-11-02 | XR_ITS ---
EXAMINATION: XR KNEE, LEFT CLINICAL INFORMATION: Acute on chronic left knee pain, swelling COMPARISON: None available. TECHNIQUE: Three views of the left knee. FINDINGS: No fracture, dislocation, or suspicious bone lesion. Normal bone mineralization. Normal alignment. Mild patella raven. Joint spaces are preserved. No significant arthropathy. No significant joint effusion. Soft tissues appear normal. XR/XR knee LT 3V IMPRESSION: Normal left knee. Electronically signed by: Tomas Mascorro MD 11/05/2024 02:55 PM EDT
--- OUTSIDE RECORDS SUMMARY | 2024-11-02 14:33 | XMS_ITS | Encounter Summary ---
Author Organization [employer] Address [address] [place] [address] Care Team Providers Care Sensor Technician Name Role Phone [facility] Primary Care Provider [phone] Encounter Details Date Type Department Care Team (Latest Contact Info) Description 11/02/2024 Travel Social History Tobacco Use Types Packs/Day Years Used Date Smoking Tobacco: Every Day Cigarettes Passive Smoke Exposure: Current Smokeless Tobacco: Never Depression Answer Date Recorded Patient Health Questionnaire-9 Score 0 04/16/2024 Patient Health Questionnaire-9 Score 0 04/16/2024 Last PHQ-9: Questionnaire Data Not on file 0 04/16/2024 Housing Stability Answer Date Recorded What is your housing situation today? I do not have housing (Staying with others, in a hotel, in a [place], living outside on the street, on a beach, in a car, or in a park 01/11/[address] you li ve. Do you have problems with any of the following? None of the above 01/11/2024 Food Insecurity Answer Date Recorded Within the past 12 months, y ou worried that your food would run out before you got money to buy more: Often true 01/11/2024 Within the past 12 months,th e food you bought just didn't last and you didn't have enough money to get more: Often true 07/2024 Transportation Answer Date Recorded In the past 12 months, has l ack of transportation kept you from medical appts, meetings, work or from getting things needed for daily living? I am not sure 01/11/2024 Utilities Answer Date Recorded In the past 12 months, has t he electric, gas, oil or water company threatened to shut off services in your home? I am not sure 01/11/2024 Depression Answer Date Recorded Patient Health Questionnaire-2 Score 0 04/16/2024 Comments Unknown Sex and Gender Information Value Date Recorded Sex Assigned at Female 05/31/2022 10:14 AM EDT Legal Sex Female 10:14 AM EDT Gender Identity Female 05/31/2022 10:14 AM EDT Sexual Orientation Bisexual 05/31/2022 10 :14 AM EDT documented as of this encounter Plan of Treatment Upcoming Encounters Date Type Department Care Team (Late st Contact Info) Description 12/26/2024 11:15 AM EDT Telemedicine [facility] [address] [place] [address] Edna Beltre FNP [address] [place] [address] documented as of this encounter Visit Diagnoses Not on filedocumented in this encounter Additional Health Concerns Assessment Noted Time PHQ-9 Depression Total Score: 0 04/16/20 24 10:25 AM EDT documented as of this encounter Care Teams Sensor Technician Relationship Specialty Start Date End Date Edna Beltre FNP [address] [place] [address] PCP - General Family Medicine 03/25/22 documented as of this encounter
--- OUTSIDE RECORDS SUMMARY | 2024-11-02 14:33 | XMS_ITS | Encounter Summary ---
Author Organization [employer] Address [address] [place] [address] Care Team Providers Care Forging Press Setter Up Name Role Phone [facility] Primary Care Provider [phone] Reason for Visit * Reason Comments Med Refill Encounter Details Date Type Department Care Team (Late st Contact Info) Description 03/05/2024 Refill [facility] [address] [place] [address] [facility] [address] [place] [address] Moderate persistent asthma with acute exacerbation Social History Tobacco Use Types Packs/Day Years Used Date Smoking Tobacco: Every Day Cigarettes Passive Smoke Exposure: Current Smokeless Tobacco: Never Depression Answer Date Recorded Patient Health Questionnaire-9 Score 8 01/11/2024 Patient Health Questionnaire-9 Score 8 01/11/2024 Last PHQ-9: Questionnaire Data Not on file 0 01/11/2024 Housing Stability Answer Date Recorded What is your housing situation today? I do not have housing (Staying with others, in a hotel, in a alf, living outside on the street, on a [...] Answer Date Recorded Patient Health Questionnaire-2 Score 2 01/11/2024 Comments Unknown Sex and Gender Information Value Date Recorded Sex Assigned at Female 05/31/2022 10:14 AM EDT Legal Sex Female 10:14 AM EDT Gender Identity Female 05/31/2022 10:14 AM EDT Sexual Orientation Bisexual 05/31/2022 10 :14 AM EDT documented as of this encounter Plan of Treatment Upcoming Encounters Date Type Department Care Team (Late st Contact Info) Description 12/26/2024 11:15 AM EDT Telemedicine [facility] [address] [place] [address] [employer] [facility] [address] [place] [address] documented as of this encounter Visit Diagnoses Diagnosis Moderate persistent asthma with acute exacerbation documented in this encounter Additional Health Concerns Assessment Noted Time PHQ-9 Depression Total Score: 8 01/11/20 24 2:14 PM EDT documented as of this encounter Care Teams Forging Press Setter Up Relationship Specialty Start Date End Date Edna Beltre FNP [address] [place] [address] PCP - General Family Medicine 03/25/22 documented as of this encounter
--- OUTSIDE RECORDS SUMMARY | 2024-11-02 14:34 | XMS_ITS | Clinical Summary ---
Author Organization [employer] Address [address] 7[address] [place] [address] Care Team Providers Care Prop Sawyer Name Role Phone [facility] Primary Care Provider [phone] Allergies No known active allergies Medications fluticasone (Flonase Sensimist) 27.5 MCG/SPRAY nasal sprayIndication s:Moderate persistent asthma with acute exacerbation Administer 2 sprays into each nostril in the morning. 10 g 11 07/01/20 23 Active albuterol (2.5 MG/3ML) 0.083% nebulizer solution USE 1 VIAL VIA NEBULIZER 4 TIMES DAILY 75 mL 1 07/01/20 23 Active valACYclovir (Valtrex) 500 MG tablet Take 1 tablet (500 mg) by mouth 2 times daily. For three days at flare onset 6 tablet 5 01/11/20 24 025 Active loratadine (Claritin) 10 MG tabletIndicatio ns:Moderate persistent asthma without complication Take 1 tablet (10 mg) by mouth Once per day. 30 tablet 11 04/16/20 24 025 Active Ventolin HFA 108 (90 Base) MCG/ACT inhalerIndicati ons:Moderate persistent asthma without complication TAKE 2 PUFFS BY MOUTH EVERY 4 TO 6 HOURS NEEDED 18 g 1 04/16/20 24 Active ferrous gluconate (Fergon) 324 (38 Fe) MG tabletIndicatio ns:Moderate persistent asthma without complication,Lo w ferritin Take 1 tablet (324 mg) by mouth with breakfast. 30 tablet 11 04/16/20 24 025 Active Ketotifen Fumarate 0.035 % solutionIndicat ions:Moderate persistent asthma without complication Administer 1 drop into affected eye(s) 2 times daily. 10 mL 11 04/16/20 24 Active budesonide-form oterol (Symbicort) 160-4.5 MCG/ACT inhalerIndicati ons:Moderate persistent asthma without complication INHALE 2 PUFFS BY MOUTH EVERY 12 HOURS. 10.2 each 2 04/16/20 24 Active triamcinolone (Kenalog) 0.1 % creamIndication s:Flexural eczema Mix entire tube with 16oz jar cera ve as directed. Apply twice daily from the neck down 80 g 3 06/18/20 24 Active hydrocortisone 1 % ointmentIndicat ions:Flexural eczema Apply twice daily for 2 weeks to affected areas on face 28 g 06/18/20 24 Active Breo Ellipta 200-25 MCG/ACT aerosol powder TAKE 1 PUFF BY MOUTH EVERY DAY AT THE SAME TIME 08/21/19 25 Active escitalopram (Lexapro) 5 MG tabletIndicatio ns:Anxiety and depression Take 1 tablet (5 mg) by mouth Once per day. 30 tablet 2 11/03/19 25 025 Active montelukast (Singulair) 10 MG tabletIndicatio ns:Moderate persistent asthma without complication TAKE 1 TABLET BY MOUTH EVERY DAY 90 tablet 11/03/19 25 Active fexofenadine (Lucy) 180 MG tabletIndicatio ns:Moderate persistent asthma without complication Take 1 tablet (180 mg) by mouth if needed each day (Allergies). 90 tablet 3 11/03/19 25 026 Active ibuprofen 600 MG tabletIndicatio ns:Pain and swelling of left knee Take 1 tablet (600 mg) by mouth every 6 (six) hours if needed for mild pain. 30 tablet 11/03/19 25 Active cyclobenzaprine (Flexeril) 5 MG tabletIndicatio ns:Pain and swelling of left knee Take 1 tablet (5 mg) by mouth if needed in the morning, at noon, and at bedtime for muscle spasms. 30 tablet 1 11/03/19 25 Active fexofenadine (Lucy) 180 MG tabletIndicatio ns:Moderate persistent asthma without complication Take 1 tablet (180 mg) by mouth if needed each day (Allergies). 90 tablet 3 04/16/20 24 025 Discontinued(R eorder (will not trigger notification to Pharmacy)) montelukast (Singulair) 10 MG tabletIndicatio ns:Moderate persistent asthma without complication TAKE 1 TABLET BY MOUTH EVERY DAY 90 tablet 07/13/20 24 025 Discontinued(R eorder (will not trigger notification to Pharmacy)) Active Problems Problem Noted Date Diagnosed Date Bronchitis 07/09/2024 Eczema 11/24/2023 Moderate persistent asthma without complication 10/15/2022 Anxiety 07/13/2021 Obesity (BMI 30-39.9) 12/21/2018 Plantar fasciitis 12/21/2018 Gastroesophageal reflux disease 12/21/2018 Nicotine dependence 12/21/2018 Microcytic anemia 12/21/2018 Alcohol abuse 12/21/2018 Cocaine use 12/21/2018 Encounters Date Type Department Care Team Description 11/02/2024 10:15 AM EDT Office Visit [facility] MEDICINE [address] [place] [address] Edna Beltre FNP Anxiety and depression (Primary Dx); Dietary counseling; Exercise counseling; Moderate persistent asthma without complication; Pain and swelling of left knee; Chronic bilateral low back pain with right-sided sciatica 11/02/2024 Travel 10/25/2024 Patient Outreach [facility] MEDICINE [address] [place] [address] Edna Beltre FNP Pre-visit Planning (Pre visit planning LVM ) 10/12/2024 Population Health Risk Score [facility] [address] [place] [address] [phone] Provider, Population Health Generic 09/04/2024 2:45 PM EST Office Visit [facility] OPTOMETRY [address] [place], [place] [id number] Ezekiel, Rhonda, OD Regular astigmatism of both eyes (Primary Dx) from Last 3 Months Immunizations Name Administration Dates Next Due DTP 10/14/1992, 9,03/18/1988,01/15,1987 Hep B, Adolescent or Pediatric 08/06/1998,1997,01/29/1998 Hib (HbOC) 07/20/1989 IPV 07/20/1989,01/16/1988,1987 Influenza injectable quadriv alent preservative free 07/02/2021,04/30/2020 Influenza, IIV3, injectable 05/04/2010, 6 Influenza, Injectable, MDCK, preservative free 04/14/2015 Influenza, seasonal, injecta ble, preservative free 04/16/2024 MMR 02/24/1996,09/21/1988 Pneumococcal Conjugate PCV 20 04/16/2024 Pneumococcal Polysaccharide PPSV23 04/14/2015 TD (adult), 2 Lf tetanus tox oid, preservative free, adsorbed 04/13/1999 Tdap 02/07/2015,03/16/2011 Varicella 01/29/1998 Family History Medical History Relation Name Comments Diabetes type II Father Hypertension Father Hypertension Mother Relation Name Status Comments Father Mother Social History Tobacco Use Types Packs/Day Years Used Date Smoking Tobacco: Every Day Cigarettes Passive Smoke Exposure: Current Smokeless Tobacco: Never Tobacco Cessation:Ready to Q uit: Not Asked; Counseling Given: Not Answered Depression Answer Date Recorded Patient Health Questionnaire-9 Score 0 04/16/2024 Patient Health Questionnaire-9 Score 0 04/16/2024 Last PHQ-9: Questionnaire Data Not on file 0 04/16/2024 Housing Stability Answer Date Recorded What is your housing situation today? I do not have housing (Staying with others, in a hotel, in a senior living, living outside on the street, on a [...] Orientation Bisexual 05/31/2022 10 :14 AM EDT Last Filed Vital Signs Vital Sign Reading Time Taken Comments Blood Pressure 129/82 11/02/2024 10:23 AM EDT Pulse 75 11/02/2024 10:23 AM EDT Temperature 35.8 ??C (96.4 ??F) 11/02/2024 10:23 AM E DT Respiratory Rate 20 11/02/2024 10:23 AM EDT Oxygen Saturation 99% 11/02/2024 10:23 AM EDT Inhaled Oxygen Concentration - - Weight 108 kg (238 lb 6.4 oz) 11/02/2024 10:23 A M EDT Height 170.2 cm (5' 7 ) 11/02/2024 10:23 AM EDT Body Mass Index 37.34 11/02/2024 10:23 AM EDT Plan of Treatment Upcoming Encounters Date Type Department Care Team (Late st Contact Info) Description 12/26/2024 11:15 AM EDT Telemedicine [facility] MEDICINE [address] [place] [address] [facility] [address] [place] [address] Health Maintenance Due Date Last Done Comments IPV Vaccines (4 of 4 - 4-dose series) 1991 07/20/1989, 01/16/1988, 1987 Family Planning (PISQ) 2002 HPV/Cotest 2017 COVID-19 Vaccine ( season) 2024 11/27/2020, 10/30/2020 Alcohol/Substance Use Screening 01/10/2025 01/11/2024 SDOH Screening 01/10/2025 01/11/2024 DTaP/Tdap/Td Vaccines (8 - Td or Tdap) 02/07/2025 02/07/2015, 03/16/2011, 04/13/1999, Additional history exists Depression Screening 04/16/2025 04/16/2024, 04/16/20 24 Tobacco Screening 11/02/2025 11/02/2024 Lipid Panel 01/12/2029 01/13/2024, 07/13/2021 Cervical Cancer Screening 06/18/2029 Pap Smear 06/18/2029 06/18/2024 Zoster Vaccines (1 of 2) 2037 RSV Patients and Patients Aged 60 years or older (1 - 1-dose 75+ series) 2062 HIB Vaccines Completed 07/20/1989 Hepatitis B Vaccines Completed 08/06/1998, 03/03/1998, 01/29/1998 HIV Screening Completed 01/13/2024, 07/13/2021 Hepatitis C Screening Completed 01/13/2024, 021 Influenza Vaccine Completed 04/16/2024, , 04/30/2020, Additional history exists Pneumococcal Vaccine: Pediatrics (0 to 5 Years) and At-Risk Patients (6 to 49) Years) Completed 04/16/2024, 04/14/2015 HPV Vaccines Aged Out No longer eligi ble based on patient's age to complete this topic Hepatitis A Vaccines Aged Out No long er eligible based on patient's age to complete this topic Meningococcal Vaccine Aged Out No susie devante eligible based on patient's age to complete this topic RSV under 20 months Aged Out No longe r eligible based on patient's age to complete this topic Rotavirus Vaccines Aged Out No longer eligible based on patient's age to complete this topic Procedures Procedure Name Priority Date/Time Associated Diagnosis Comments PAP SMEAR Routine 06/18/2024 9:19 AM EST Encounter for Papanicolaou smear for cervical cancer screening HEPATITIS PANEL, GENERAL Routine 01/13/2024 12:03 PM EDT Healthcare maintenance HIV 1/2 ANTIGEN/ANTIBODY, FOURTH GENERATION W/RFL Routine 01/13/2024 12:03 PM EDT Healthcare maintenance LIPID PANEL, STANDARD Routine 01/13/2024 12:03 PM EDT Class 1 obesity due to excess calories with body mass index (BMI) of 34.0 to 34.9 in adult, unspecified whether serious comorbidity present from Last 3 Months or Most Recently Relevant to Health Maintenance Results * Pap Smear (06/18/2024 9:19 AM EST) Swab 06/18/2024 9:19 AM EST 06/19/2024 9:10 AM EST [facility] - 06/21/2024 1:47 PM EST ----- ------- Name: Phylicia Peralta ? Age/Sex: 38/F ? : 1985 Unit#: [id number] ?? Attend Dr: Edna Beltre PHLEBOTOMY TECH ?Re06/18/24 ?Status: DEP REF ? Location: HO.LNP ?Disch: ? ----- ------- SPEC : [id number] ?RECD: 06/19/24 ? STATUS: ??SOUT ? REQ NUM: [id number] ? ROLANDO: 06/18/24 ? SUBM DR: Edna Beltre ? ENTERED: ??06/19/24 ?SP TYPE: Pap Smr ?OTHR DR: ? ORDERED: ??Pap Smear ? Interpretation ?? Satisfactory for evaluation. ?? Negative for intraepithelial lesion or malignancy. ?? Mild inflammation. ? HPV High Risk: ??Negative ? HPV Genotyping 16: ??Negative ?? HPV Genotyping 18: ??Negative ?Clinical Information LMP: Unknown date Previous PAP test: Unknown date/findings ? Material Received ?? ThinPrep-Cervical ----- ------- Signed (signature on file) SHARLA Carlson (ASCP) 06/21/24 1347 ? ----- ------- ? END OF REPORT ? [facility] CYTOLOGY ORDERABLES Final Result Performing Organization Address [facility] Co de Phone Number [facility] [address] [place] [address] [phone] * Hepatitis Panel, General (01/13/2024 12:03 PM EDT) Hepatitis A IgM Nonreactive Nonreactive [facility] Comment:IgM antibodies to YEAGER V not detected; does not exclude earlyacute or recovered HAV infection. ~Hepatitis B Surface Antibody REACTIVE Nonreactive [facility] Comment:REACTIVE: > 11.99 mI U/mL Hepatitis B Core Antibody Nonreactive Nonreactive [facility] Hepatitis C Antibody Nonreactive Nonreactive [facility] Comment:Antibodies to HCV no t detected; does not exclude early acuteHCV infection. Hepatitis B Surface Ag Negative Negative [facility] Blood 01/13/2024 12:0 3 PM EDT 01/13/2024 1:13 PM EDT [facility] BLOOD ORDERABLES Final Re sult Performing Organization Address [facility] Co de Phone Number [facility] [address] [place] [address] [phone] * HIV-1/2 Antigen and Antibodies, Fourth Generation, with Reflexes (01/13/2024 12:03 PM EDT) HIV AB/AG Nonreactive Nonreactive [facility] Comment:HIV-1 p24 Ag and/or HIV-1/HIV-2 Ab not detected.A test result that is nonreactive does not exclude thepossibility of exposure to or infection with HIV-1 and/orHIV-2. Nonreactive results in this assay for individualswith prior exposure to HIV-1 and/or HIV-2 may be due toantigen and antibody levels that are below the limit ofdetection of this assay.The DescribeMe HIV Ag/Ab Combo assay result andsupplemental assay results should be interpreted inconjunction with the patient's clinical presentation,history and other laboratory results. If the results areinconsistent with clinical evidence, additional testing issuggested to confirm the result. Blood Venous blood specimen / Unknown 01/13/2024 12:03 PM EDT 01/13/2024 1:13 PM EDT [facility] BLOOD ORDERABLES Final Re sult [facility] [address] [place] [phone] * Lipid Panel, Standard (01/13/2024 12:03 PM EDT) Triglycerides 107 <150 mg/dL [facility] Comment:Desirable Triglyceri de: less than 150 mg/dLBorderline High Triglyceride 150-199 mg/dLHigh Triglyceride: 200-499 mg/dLVery High Triglyceride: greater than or equal to 5OO mg/dL Cholesterol 140 <200 mg/dL [facility] Comment:Desirable Cholestero l: less than 200 mg/dLBorderline High Cholesterol: 200-239 mg/dLHigh Cholesterol: greater than 239 mg/dL LDL Cholesterol Calculated 58 <100 mg/dL [facility] Comment:Desirable LDL: less than 100 mg/dLNear Optimal/Above Optimal LDL: 110- 129 mg/dLBorderline High LDL: 130-159 mg/dLHigh LDL: 160-189 mg/dLVery High LDL: greater than or equal to 190 mg/dL HDL Cholesterol 61 >40 mg/dL [facility] Comment:Desirable HDL: great er than 40 mg/dL Note: This HDL assay may give artificially low results in patients with liver disease. Blood Venous blood specimen / Unknown 01/13/2024 12:03 PM EDT 01/13/2024 1:13 PM EDT [facility] BLOOD ORDERABLES Final Re sult [facility] [address] [place] [address] [phone] from Last 3 Months or Most Recently Relevant to Health Maintenance Insurance C3 Care Teams Prop Sawyer Relationship Specialty Start Date End Date AlexsanderEdna [facility] [address] [place] [phone] PCP - General Family Medicine 03/25/22
--- OUTSIDE RECORDS SUMMARY | 2024-11-02 14:34 | XMS_ITS | Encounter Summary ---
Author Organization [employer] Address [address] [place] [address] Care Team Providers Care Steam Distribution Supervisor Name Role Phone [facility] Primary Care Provider [phone] Reason for Visit * Reason Onset Date Comments Med Refill 07/02/2023 Encounter Details Date Type Department Care Team (Late st Contact Info) Description 07/02/[address] [facility] MEDICINE [address] [place] [phone] [facility] [address] [place] [address] Moderate persistent asthma with acute exacerbation Social History Tobacco Use Types Packs/Day Years Used Date Smoking Tobacco: Every Day Cigarettes Passive Smoke Exposure: Current Smokeless Tobacco: Never Comments Unknown Sex and Gender Information Value Date Recorded Sex Assigned at Female 05/31/2022 10:14 AM EDT Legal Sex Female 10:14 AM EDT Gender Identity Female 05/31/2022 10:14 AM EDT Sexual Orientation Bisexual 05/31/2022 10 :14 AM EDT documented as of this encounter Plan of Treatment Upcoming Encounters Date Type Department Care Team (Late st Contact Info) Description 12/26/2024 11:15 AM EDT Telemedicine [facility] MEDICINE [address] [place] [address] [facility] [address] [place] [address] documented as of this encounter Visit Diagnoses Diagnosis Moderate persistent asthma with acute exacerbation documented in this encounter Care Teams Steam Distribution Supervisor Relationship Specialty Start Date End Date Edna Beltre FNP [address] [place] [phone] PCP - General Family Medicine 03/25/22 documented as of this encounter
--- OUTSIDE RECORDS SUMMARY | 2024-11-02 14:34 | XMS_ITS | Encounter Summary ---
Author Organization [employer] Address [address] [place] [address] Care Team Providers Care Shot Core Drill Operator Name Role Phone [facility] Primary Care Provider [phone] Reason for Visit * Reason Onset Date Comments Med Refill 07/02/2023 Encounter Details Date Type Department Care Team (Late st Contact Info) Description 07/02/2023 Refill [facility] MEDICINE [address] [place] [phone] Lyudmila Morel ANP [address] [place] [address] Social History Tobacco Use Types Packs/Day Years [...] Info) Description 12/26/2024 11:15 AM EDT Telemedicine [facility] MEDICINE [address] [place] [phone] [facility] [address] [place] [address] documented as of this encounter Visit Diagnoses Not on filedocumented in this encounter Care Teams Shot Core Drill Operator Relationship Specialty Start Date End Date Edna Beltre FNP [address] [place] [phone] PCP - General Family Medicine 03/25/22 documented as of this encounter
--- OUTSIDE RECORDS SUMMARY | 2024-11-02 14:34 | XMS_ITS | Encounter Summary ---
Author Organization [employer] Address [address] [facility] 7t [place] [address] Care Team Providers Care Knuckle Bender Name Role Phone Edna Beltre Primary Care Provider [phone] Reason for Referral * Consultation (Routine) - Authorized Specialty Diagnoses / Procedures Referred By Olu lisa Referred To Contact Behavioral Health Diagnoses Anxiety and depression Edna Beltre FNP [address] [place] [address] Phone: tel: fax: Referral ID Status Reason Start Date Expiration Date Visits Requested Visits Authorized [id number] Authorized Specialty Services Required 11/02/2024 11/02/2025 1 1 * Consultation (Routine) - Pending Review Specialty Diagnoses / Procedures Referred By Olu lisa Referred To Contact Physical Therapy Diagnoses Chronic bilateral low back pain with right-sided sciatica Edna Beltre FNP [address] [place] [address] Phone: tel: fax: Referral ID Status Reason Start Date Expiration Date Visits Requested Visits Authorized [id number] Pending Review Specialty Services Required 11/02/2024 11/02/2025 1 1 Reason for Visit * Reason Comments Follow-up Bilateral knee pain that shoots down her calves has been happing for about 1 month, as well as lower back pain that's happening more frequently Encounter Details Date Type Department Care Team (Late st Contact Info) Description 11/02/2024 10:15 AM EDT Office Visit [facility] MEDICINE [address] [place] [address] Edna Beltre FNP [address] [place] [address] Anxiety and depression (Primary Dx); Dietary counseling; Exercise counseling; Moderate persistent asthma without complication; Pain and swelling of left knee; Chronic bilateral low back pain with right-sided sciatica Social History Tobacco Use Types Packs/Day Years [...] with others, in a hotel, in a detention, living outside on the street, on a [...] AM EDT documented as of this encounter Last Filed Vital Signs Vital Sign Reading [...] Mass Index 37.34 11/02/2024 10:23 AM EDT documented in this encounter Plan of Treatment Upcoming Encounters Date Type Department Care Team (Late st Contact Info) Description 12/26/2024 11:15 AM EDT Telemedicine [facility] MEDICINE [address] [place] [address] [facility] [address] [place] [address] Scheduled Orders Name Type Priority Associated Diagnoses Orde r Schedule XR Knee 3 Views Left Imaging Routine Pain and swelling of left knee Expected: 11/02/2024, Expires: 11/02/2025 Scheduled Referrals Name Type Priority Associated Diagnoses Order Schedule Referral to Physical Therapy Outpatient Referral Routine Chronic bilateral low back pain with right-sided sciatica Expected: 11/02/2024 (Approximate), Expires: 11/02/2025 Referral to Behavioral Health Outpatient Referral Routine Anxiety and depression Expected: 11/02/2024 (Approximate), Expires: 11/02/2025 documented as of this encounter Visit Diagnoses Diagnosis Anxiety and depression- Primary Dietary counseling Dietary surveillance and counseling Exercise counseling Moderate persistent asthma without complication Pain and swelling of left knee Chronic bilateral low back pain with right-sided sciatica documented in this encounter Additional Health Concerns Assessment Noted Time PHQ-9 Depression Total Score: 0 09/16/20 24 10:25 AM EDT documented as of this encounter Care Teams Knuckle Bender Relationship Specialty Start Date End Date Edna Beltre FNP [address] [place] [phone] PCP - General Family Medicine 03/25/22 documented as of this encounter
== END 2024-11-02 12:42 | disposition home or self-care (01) ==
LOC: HO.XRAY 12:41
PROVIDERS: PCP Registered Nurse; Visit Provider Registered Nurse
DX: M25.562 Pain in left knee (principal); M25.462 Effusion, left knee
CPT/HCPCS: 73562

== ENCOUNTER → 2024-11-02 12:49 | Outpatient (BNV) | payer MEDICAID, SELFPAY | PROVIDERS: PCP Registered Nurse; Visit Provider Radiology Diagnostic Radiology | DX: M25.562 Pain in left knee (principal); R22.42 Localized swelling, mass and lump, left lower limb | CPT/HCPCS: 73562 ==

== ENCOUNTER 2024-12-31 10:41 | Outpatient (REF) | payer MEDICAID, SELFPAY ==
[2024-12-31 11:27] LABS: MANUAL DIFF FLAG NO
[2024-12-31 11:38] LABS: Basophils Absolute Auto 0.1 X10*3/uL (0.0-0.2); Basophils Percent Auto 0.9 % (0-2); Eosinophils Absolute Auto 0.5 X10*3/uL (0.0-0.4); Eosinophils Percent Auto 9.3 % (0-4); Hematocrit 37.2 % (37.0-47.0); Imm Gran Abs Auto 0.01 X10*3/uL (0.00-0.03); Imm Gran Pct Auto 0.2 % (0.0-0.4); Lymphocytes Absolute Auto 1.7 X10*3/uL (1.2-4.9); Lymphocytes Percent Auto 29.6 % (20-40); Mean Corpuscular HGB Conc 32.3 g/dl (31.0-35.0); Mean Corpuscular Hemoglobin 25.5 pg (27.0-33.0); Mean Platelet Volume 10.1 fL (9.4-12.3); Monocytes Absolute Auto 0.3 X10*3/uL (0.1-1.2); Monocytes Percent Auto 5.9 % (2-11); Neutrophils Absolute Auto 3.2 x10*3/uL (2.0-8.3); Neutrophils Percent Auto 54.1 % (45-73); Platelet Count 267 X10*3/uL (160-400); Red Blood Count 4.71 X10*6/uL (4.20-5.50); Red Cell Distribution Width 14.6 % (11.0-16.0); White Blood Count 5.8 X10*3/uL (4.8-10.8)
--- OUTSIDE RECORDS SUMMARY | 2024-12-31 11:45 | XMS_ITS | Encounter Summary ---
Author Organization [employer] Address [address] [facility] 7 [place] [address] Care Team Providers Care Wrapper Hands Sprayer Name Role Phone [facility] Primary Care Provider [phone] Reason for Visit * Reason Comments Med Refill Encounter Details Date Type Department Care Team (Late st Contact Info) Description 03/05/[address] [facility] MEDICINE [address] [place] [address] [facility] [address] [place] [address] Moderate persistent asthma with acute exacerbation Social [...] with others, in a hotel, in a long term, living outside on the street, on a [...] as of this encounter Plan of Treatment Not on file documented as of this encounter Visit Diagnoses Diagnosis Moderate persistent asthma with acute exacerbation documented in this encounter Additional Health Concerns Assessment Noted Time PHQ-9 Depression Total Score: 8 01/11/20 24 2:14 PM EDT documented as of this encounter Care Teams Wrapper Hands Sprayer Relationship Specialty Start Date End Date Edna Beltre FNP [address] [place] [phone] PCP - General Family Medicine 03/25/22 documented as of this encounter
[2024-12-31 11:56] LABS: Estimated Average Glucose 111 mg/dL; Hemoglobin A1c % 5.5 % (<6.0)
[2024-12-31 12:29] LABS: Alanine Aminotransferase 23 U/L (0-31); Albumin Level 3.8 g/dL (3.5-5.0); Alkaline Phosphatase 83 U/L (39-117); Anion Gap 10 (12-20); Aspartate Amino Transferase 22 U/L (5-31); Bilirubin Total 0.6 mg/dL (0.0-1.0); Blood Urea Nitrogen 11 mg/dL (9-16); Calcium 8.9 mg/dL (8.4-10.2); Carbon Dioxide 27 mmol/L (22-29); Chloride 107 mmol/L (96-108); Cholesterol 143 mg/dL (<200); Estimated Glomerular Filt Rate > 60; Glucose Random 91 mg/dL (60-115); HDL Cholesterol 67 mg/dL (>40); LDL Cholesterol Calculated 56 mg/dL (<100); Potassium 3.9 mmol/L (3.3-5.1); Sodium 140 mmol/L (135-145); Total Protein 6.7 g/dL (6.5-8.0); Triglycerides 102 mg/dL (<150)
== END 2024-12-31 10:42 | disposition home or self-care (01) ==
LOC: HO.HHCL 10:41
PROVIDERS: Visit Provider Nurse Practitioner Family
DX: Z00.00 Encounter for general adult medical examination without abnormal findings (principal)
CPT/HCPCS: 36415; 80053; 80061; 83036; 85025